=== PATIENT | female | born 1955 | race Caucasian/White ===

== ENCOUNTER 2018-11-01 06:50 | Outpatient (CLI) | payer OTHER, SELFPAY ==
[2018-11-01 08:15] LABS: Ferritin 146 ng/mL (8-388); TSH (W/Ref FT4) 2.09 uIU/mL (0.358-3.74)
== END 2018-11-01 07:10 ==
PROVIDERS: PCP Family Medicine; Visit Provider Family Medicine
DX: D64.9 Anemia, unspecified (principal); E03.9 Hypothyroidism, unspecified; E83.119 Hemochromatosis, unspecified
CPT/HCPCS: 36415; 82728; 84443

== ENCOUNTER 2018-11-09 01:28 | Outpatient (RCR) | payer OTHER, SELFPAY | END 2018-11-18 23:59 | disposition home or self-care (01) | LOC: INF 01:28 | PROVIDERS: PCP Family Medicine; Visit Provider Family Medicine | DX: E83.119 Hemochromatosis, unspecified (principal) | CPT/HCPCS: 99195 ==

== ENCOUNTER 2018-12-07 01:02 | Outpatient (RCR) | payer OTHER, SELFPAY | END 2018-12-18 23:59 | disposition home or self-care (01) | LOC: INF 01:02 | PROVIDERS: PCP Family Medicine; Visit Provider Family Medicine | DX: R69 Illness, unspecified (principal) ==

== ENCOUNTER 2019-11-04 10:52 | Outpatient (CLI) | payer OTHER, SELFPAY ==
[2019-11-04 13:05] LABS: Ferritin 110 ng/mL (8-252); TSH (W/Ref FT4) 2.47 uIU/mL (0.36-3.74)
[2019-11-04 13:30] LABS: HCT 50.5 % (36.0-46.0); HGB 16.7 g/dL (12.0-15.5); Mean Corp. HGB Concentration 33.1 g/dL (32.0-36.0); Mean Corpuscular Hemoglobin 31.2 pg (27.0-33.0); Mean Corpuscular Volume 94.4 fL (80-95); Mean Platelet Volume 9.8 fL (8.0-11.0); Platelet Count 301 x1000/uL (130-400); RBC 5.35 m/cumm (4.00-5.20); White Blood Cell Count 8.88 k/cumm (4.4-10.8)
== END 2019-11-04 11:12 ==
PROVIDERS: PCP Family Medicine; Visit Provider Family Medicine
DX: Z00.00 Encounter for general adult medical examination without abnormal findings (principal); Z13.29 Encounter for screening for other suspected endocrine disorder; Z13.0 Encounter for screening for diseases of the blood and blood-forming organs and certain disorders involving the immune mechanism
CPT/HCPCS: 36415; 85027; 82728; 84443

== ENCOUNTER 2019-11-08 02:26 | Outpatient (CLI) | payer OTHER, SELFPAY ==
--- NOTE | 2019-11-08 | DI.RAD_ITS ---
EXAM: XR KNEE LT 2V AP,LAT CLINICAL HISTORY: LT KNEE PAIN TECHNIQUE: COMPARISON: No exams were available for comparison FINDINGS: Two views were obtained. No bony or soft tissue abnormality seen. IMPRESSION:
--- NOTE | 2019-11-08 10:05 | DI.RAD_ITS ---
EXAM: XR LUMBAR SPINE AP, LAT CLINICAL HISTORY: BACK PAIN TECHNIQUE: COMPARISON: No exams were available for comparison FINDINGS: Three views were obtained. There is narrowing of the cartilaginous joint spaces at L4-5 and L5-S1. There are prominent hypertrophic facet changes at L4-5 and L5-S1 with mild pseudo spondylolisthesis o f L4 on L5. Minimal endplate hypertrophic changes noted at multiple levels. No compression fracture seen. 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
--- NOTE | 2019-11-08 10:05 | DI.RAD_ITS ---
EXAM: XR HAND RT LIMITED CLINICAL HISTORY: RT HAND PAIN TECHNIQUE: COMPARISON: LEFT HAND COMPLETE from 09/03/2010 FINDINGS: Three views were obtained. There is minimal narrowing of the cartilaginous joint spaces of IP joints consistent with degenerative change. Little if any hypertrophic changes noted. No other significan t findings. IMPRESSION: Minimal degenerative changes.
== END 2019-11-08 02:46 ==
PROVIDERS: PCP Family Medicine; Visit Provider Pediatrics Pediatric Rheumatology
DX: M25.561 Pain in right knee (principal); M25.562 Pain in left knee; M79.641 Pain in right hand; M19.041 Primary osteoarthritis, right hand; M54.5 Low back pain; M47.817 Spondylosis without myelopathy or radiculopathy, lumbosacral region; M43.16 Spondylolisthesis, lumbar region
CPT/HCPCS: 72100; 73120; 73560

== ENCOUNTER 2022-03-04 13:41 | Outpatient (CLI) | payer BC, SELFPAY ==
[2022-03-04 14:15] LABS: Abs Immature Grans 0.03 10^3/uL (0.0-0.06); Absolute Eosinophil Count 0.63 10^3/uL (0.0-0.7); Absolute Lymphocyte Count 4.46 10^3/uL (1.2-3.4); Absolute Monocyte Count 0.66 10^3/uL (0.1-0.8); Eosinophils % 6.1; HCT 49.6 % (36.0-46.0); HGB 16.5 g/dL (11.2-15.7); Immature Grans % 0.3; MCHC 33.3 % (32.0-36.0); MCV 93 fL (80-95); Monocytes % 6.4; Neutrophils % 43.2; Platelet Count 331 10^3/uL (130-400); RBC 5.32 10^6/uL (3.93-5.22); RDW 12.5 % (11.7-14.6); RDW-SD 42.8 fL; WBC 10.38 10^3/uL (4.4-10.8)
[2022-03-04 15:03] LABS: Iron 129 ug/dL (50-170)
[2022-03-04 15:15] LABS: ALT 41 U/L (14-59); AST 20 U/L (15-37); Albumin 4.2 g/dL (3.4-5.0); Alkaline Phosphatase 65 U/L (46-116); Anion Gap 10.3 mmol/L (3-11); BUN 17 mg/dL (7-18); Bilirubin, Total 0.5 mg/dL (0.2-1.0); CO2 27.7 mmol/L (21.0-32.0); CREATININE 0.8 mg/dL (0.55-1.02); Calcium 8.9 mg/dL (8.5-10.1); Chloride 100 mmol/L (98-107); Ferritin 188 ng/mL (8-252); Glucose 121 mg/dL (74-106); Potassium 4.1 mmol/L (3.5-5.1); Sodium 138 mmol/L (136-145); TSH (W/Ref FT4) 3.62 uIU/mL (0.36-3.74); Total Protein 7.8 g/dL (6.4-8.2)
[2022-03-06 10:50] LABS: Anaplasma phagocytophilum Negative (Negative); B. miyamotoi PCR Negative (Negative); Babesia divergens/MO-1 Negative (Negative); Babesia duncani Negative (Negative); Babesia microti Negative (Negative); Ehrlichia chaffeensis Negative (Negative); Ehrlichia ewingii/canis Negative (Negative); Ehrlichia muris eauclairensis Negative (Negative)
[2022-03-07 17:27] LABS: Lyme Ab w Rflx to Lyme Confirm Negative (Negative)
== END 2022-03-04 13:42 | disposition home or self-care (01) ==
LOC: LBO 13:46
PROVIDERS: Physician Assistant; PCP Family Medicine; Visit Provider Family Medicine
DX: Z00.00 Encounter for general adult medical examination without abnormal findings (principal); E83.119 Hemochromatosis, unspecified; E03.9 Hypothyroidism, unspecified; K76.0 Fatty (change of) liver, not elsewhere classified; R59.1 Generalized enlarged lymph nodes
CPT/HCPCS: 36415; 80053; 87798; 82728; 83540; 84443; 85025; 86618

== ENCOUNTER 2022-03-04 18:23 | Outpatient (CLI) | payer BC, SELFPAY | END 2022-03-04 18:24 | disposition home or self-care (01) | LOC: LBO 18:26 | PROVIDERS: PCP Family Medicine; Referring Provider Physician Assistant; Visit Provider Physician Assistant ==

== ENCOUNTER 2022-03-05 20:12 | Emergency (ER) | payer BC, SELFPAY ==
[2022-03-05 20:28] VITALS: BP 161/92; PULSE 90; RESP 16; TEMP 37.3; O2SAT 99
--- NOTE | 2022-03-05 20:36 | ED.GENADUL_ITS ---
Discharge Plan Disposition Patient Disposition: HOME Condition: Good Discharge Details Clinical Impression: Herpes zoster of neck Primary Care Provider: Teresa Celis ED Provider: Regna Frank Home Meds and New Rx's Prescriptions: New valacyclovir 1 gram tablet 1,000 mg PO TID Qty: 21 0RF Continued Creon 3,000-9,500- 15,000 unit capsule,delayed release(DR/EC) 1 cap PO TID Qty: 270 5RF multivitamin [Daily Multiple] 1 EACH tablet 1 ea PO DAILY levothyroxine [Synthroid] 50 mcg tablet 50 mcg PO DAILY Qty: 30 12RF Discharge Instructions Instructions: Shingles (ED) Additional Instructions: At this time your symptoms appear clinically consistent with shingles. Please take the antiviral medication as directed. You can also take Benadryl or loratadine to help with any mild reactionary inflammation. As we discussed together, rashes can change rapidly, and so if you notice any spread anywhere else or any significant change in the rash please follow-up closely with your primary care provider for reassessment. If you notice any worsening of your symptoms, or any new symptoms such as vomiting, diarrhea, fever, chills, shortness of breath, chest pain, numbness, weakness, or fainting , please return immediately to the emergency department for reevaluation. Please follow up with your primary care provider as soon as possible for reassessment and reevaluation. As always, it was a pleasure participating in your medical care today. Referrals: Teresa Celis [place], [place] [Primary Care Provider] - Medical Decision Making This is a pleasant 66-year-old female with a past medical history of hypothyroidism, who presents today for evaluation of rash on the left neck. For the last 2 days the patient noticed some irritation on her left neck and some swollen and slightly inflamed glands in that area. She was seen by her PCP, who saw no clear overt signs of infection. She had appropriate laboratory work-up performed to evaluate for tickborne illness, and was discharged appropriately. Since then there has been a change in the patient's clinical presentation. She has developed a rash on her posterior left neck. She denies any burning, but d oes admit to mild achiness on the rash itself. She denies any significant itching currently. No new ear pain. No headache. No fever. She states that she is actually feeling slightly better than she did yesterday and the day before. No other complaints at this time. No history of shingles in the past. No new medications or soaps. Physical exam demonstrates a mildly erythematous, scattered, minimally raised lesions over the left posterior neck. Does not appear to cross midline on the posterior neck and scalp. It appears to be isolated to the C2/C3 dermatome. There appears to be a few early vesicles that are present. Internal ear demonstrates no evidence of redness infection or other abnormality. No meningeal signs. No current clinical evidence of staph scalded skin syndrome, erythema multiforme, erythema migrans, toxic epidermal necrolysis, Brandt- Santos syndrome, Kawasaki-like rash, meningococcemia, pemphigus vulgaris, or necrotizing fasciitis. Symptoms appear consistent with shingles at this time. Seems to be localized completely to the C2/C3 dermatome and does not cross midline. We will treat with valacyclovir. There does not appear to be any superinfection from a bacterial component on top of this. Recommend Benadryl or loratadine as needed for any reactionary component. Discussed red flags which return. I have extensively reviewed the treatment plan and discharge instructions with the patient. I have addressed all patient concerns at this time. The patient was made aware of what symptoms to monitor for that would warrant a return to the emergency department. Discussed the plan with the patient, they demonstrate verbal understanding and agreement with our assessment and plan at this time. The documentation in this chart was dictated using [employer] dictation software. Please excuse any dictation errors. HPI General Date/Time Provider Initiated Documentation: 03/05/22 20:18 . HPI Narrative: This is a pleasant 66-year-old female with a past medical history of hypothyroidism, who presents today for evaluation of rash on the left neck. For the last 2 days the patient noticed some irritation on her left neck and some swollen and slightly inflamed glands in that area. She was seen by her PCP, who saw no clear overt signs of infection. She had appropriate laboratory work-up performed to evaluate for tickborne illness, and was discharged appropriately. Since then there has been a change in the patient's clinical presentation. She has developed a rash on her posterior left neck. She denies any burning, but does admit to mild achiness on the rash itself. She denies any significant itching currently. No new ear pain. No headache. No fever. She states that she is actually feeling slightly better than she did yesterday and the day before. No other complaints at this time. No history of shingles in the past. No new medications or soaps. Related Data Home Medications Medication Instructions Recorded Confirmed multivitamin (Daily Multiple 1 ea PO DAILY 09/15/15 03/05/22 tablet) lipase 3,000-protease 1 cap PO TID #270 caps 11/09/20 03/05/22 9,500-amylase 15,000 unit capsule, delayed rel (Creon) levothyroxine 50 mcg tablet 50 mcg PO DAILY #30 tab-caps 11/25/21 03/05/22 (Synthroid) valacyclovir 1 gram tablet 1,000 mg PO TID #21 tabs 03/05/22 Previous Rx's Medication Instructions Recorded lipase 3,000-protease 1 cap PO TID #270 caps 11/09/20 9,500-amylase 15,000 unit capsule, delayed rel (Creon) levothyroxine 50 mcg tablet 50 mcg PO DAILY #30 tab-caps 11/25/21 (Synthroid) valacyclovir 1 gram tablet 1,000 mg PO TID #21 tabs 03/05/22 Allergies Allergy/AdvReac Type Severity Reaction Status Date / Time minocycline AdvReac Intermediate JOINT PAIN Verified 03/05/22 20:36 AND SWELLING Review of Systems All systems reviewed & are unremarkable except as noted in HPI and below PFSH All Active Problems Herpes zoster of neck (Acute) Vitamin D deficiency (Acute 02/05/09) Annual physical exam (Acute) Non-alcoholic fatty liver disease (Acute 02/08/09) Joint pain (Acute 11/08/10) multiple arthralgias Hypothyroidism (Acute 11/08/10) 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 Brother No problems noted. Son No problems noted. Son No problems noted. Daughter No problems noted. Social History Smoking/Tobacco Use Status: Former Tobacco Use Quit status: has quit before Second Hand Exposure: Yes Smoking risk assessment performed?: Yes Alcohol Intake: former Drug use: Current Sobriety Substance use type: does not use Caregiver/Support person: No Household members: spouse Housing: house Communication Needs: Corrective Lenses Do you need help understanding health information?: Rarely current occupation: [employer] Pets and animals: Yes Pets and animals: cat(s) and dog(s) Sexually active: No Do you think of yourself as: straight/heterosexual Current gender identity: female What is your relationship status?: How often do you talk on the phone with friends or family?: three or more times per week How often do you get together with friends or relatives?: three or more times per week How often do you attend restorationist or orthodoxy services?: decline to answer Do you belong to any clubs or organized social groups?: no Panel score (0-1 are the most socially isolated patients): 2 What type of physical activity do you participate in: walking Duration: 60-90 minutes/day Frequency: daily Denice/Roman Catholic: No preference Special denice needs: No Seatbelt use: always Drive intox or ride w/intox national dedicated truck driver: No Do you feel safe at home: Yes Do you feel safe in your relationship?: Yes Exam Narrative Exam Narrative: 1.Const: Well-nourished, Well-developed, appearing stated age 2.Eyes: PERRL, no conjunctival injection, and symmetrical lids. 3.ENT: Atraumatic external nose and ears. Moist MM. Neck: Symmetric, trachea midline, No thyromegaly. 4.CVS: +S1/S2, No murmurs or gallops. Peripheral pulses 2+ and equal in all extremities. Brisk capillary refill in all extremities. 5.RESP: Unlabored respiratory effort. Clear to auscultation bilaterally. No wheezes rales or rhonchi 6.GI: Soft, Nontender/Nondistended, No hepatosplenomegaly. No guarding or rebound. 7.MSK: Normocephalic/Atraumatic, Extremities w/o deformity or ttp No cyanosis or clubbing, Normal movement of all extremities 8.Skin: Patient demonstrates evidence of a mildly erythematous, scattered, minimally raised lesions over the left posterior neck. Does not appear to cross midline on the posterior neck and scalp. It appears to be isolated to the C2/C3 dermatome. There appears to be a few early vesicles that are present. Internal ear demonstrates no evidence of redness infection or other abnormality. No meningeal signs. Negative Nikolsky sign. No large vesicles or bulla. No palpable purpura. No oral lesions. No mucosal lesions. No evidence of severe cellulitis. No evidence of vaccine preventable rash. 9.Neuro: materials mgmt tech II-XII grossly intact. Sensation grossly intact, no focal neurologic deficits. 10.Psych: (AAO) x3. Appropriate mood and affect
[2022-03-05] MEDS: valACYclovir 500 MG TAB (20:46)
== END 2022-03-05 20:47 | disposition home or self-care (01) ==
PROVIDERS: Emergency Provider Student in an Organized Health Care Education/Training Program; PCP Family Medicine
DX: B02.9 Zoster without complications (principal)
CPT/HCPCS: 99283

== ENCOUNTER 2023-02-15 02:48 | Outpatient (CLI) | payer BC, MEDICARE, SELFPAY ==
[2023-02-15 08:19] LABS: Abs Immature Grans 0.03 10^3/uL (0.0-0.06); Absolute Basophil Count 0.11 10^3/uL (0.0-0.2); Absolute Eosinophil Count 0.72 10^3/uL (0.0-0.7); Absolute Lymphocyte Count 4.35 10^3/uL (1.2-3.4); Absolute Monocyte Count 0.61 10^3/uL (0.1-0.8); Absolute Neutrophil Count 4.77 10^3/uL (1.2-6.7); Eosinophils % 6.8; HCT 49.8 % (36.0-46.0); HGB 16.8 g/dL (11.2-15.7); Immature Grans % 0.3; Lymphocytes % 41.1; MCH 30.9 pg (27.0-33.0); MCHC 33.7 % (32.0-36.0); MCV 92 fL (80-95); Monocytes % 5.8; Platelet Count 317 10^3/uL (130-400); RBC 5.44 10^6/uL (3.93-5.22); RDW 12.7 % (11.7-14.6); RDW-SD 42.4 fL; WBC 10.59 10^3/uL (4.4-10.8)
[2023-02-15 08:43] LABS: ALT 34 U/L (14-59); AST 16 U/L (15-37); Albumin 3.9 g/dL (3.4-5.0); Alkaline Phosphatase 55 U/L (46-116); Anion Gap 7.9 mmol/L (3-11); BUN 20 mg/dL (7-18); Bilirubin, Total 0.7 mg/dL (0.2-1.0); CO2 27.1 mmol/L (21.0-32.0); CREATININE 0.9 mg/dL (0.55-1.02); Calcium 9.2 mg/dL (8.5-10.1); Calculated LDL 178 mg/dL (<100); Chloride 104 mmol/L (98-107); Cholesterol 248 mg/dL (<200); Estimated GFR 70.51 (mL/min/1.73m2); Glucose 122 mg/dL (74-106); HDL Cholesterol 56 mg/dL (40-60); Potassium 4.7 mmol/L (3.5-5.1); Sodium 139 mmol/L (136-145); TSH (W/Ref FT4) 2.02 uIU/mL (0.36-3.74); Total Protein 7.7 g/dL (6.4-8.2); Triglyceride 74 mg/dL (<150)
[2023-02-15 12:53] LABS: Lab Add On Test DONE
[2023-02-15 13:11] LABS: Iron 153 ug/dL (50-170)
[2023-02-15 13:44] LABS: Ferritin 72 ng/mL (8-252)
== END 2023-02-15 02:49 | disposition home or self-care (01) ==
LOC: LBO 02:51
PROVIDERS: PCP Family Medicine; Visit Provider Family Medicine
DX: E03.9 Hypothyroidism, unspecified (principal); Z00.00 Encounter for general adult medical examination without abnormal findings; E83.119 Hemochromatosis, unspecified
CPT/HCPCS: 36415; 80053; 80061; 82728; 83540; 84443; 85025

== ENCOUNTER 2025-01-10 01:50 | Outpatient (CLI) | payer MEDICARE, SELFPAY ==
[2025-01-10 12:37] LABS: HGB 16.5 g/dL (11.2-15.7); MCH 31.1 pg (27.0-33.0); MCV 94 fL (80-95); MPV 10.4 fL (8.0-11.0); Platelet Count 279 10^3/uL (130-400); RDW 12.5 % (11.7-14.6); RDW-SD 43.2 fL; WBC 8.08 10^3/uL (4.4-10.8)
[2025-01-10 13:00] LABS: ALT 27 U/L (14-59); AST 22 U/L (15-37); Albumin 3.8 g/dL (3.4-5.0); Alkaline Phosphatase 63 U/L (46-116); Anion Gap 9.9 mmol/L (3-11); BUN 22 mg/dL (7-18); Bilirubin, Total 0.6 mg/dL (0.2-1.0); CO2 24.1 mmol/L (21.0-32.0); CREATININE 0.8 mg/dL (0.55-1.02); Calcium 9.1 mg/dL (8.5-10.1); Chloride 103 mmol/L (98-107); Estimated GFR 80.21 (mL/min/1.73m2); Glucose 103 mg/dL (74-106); Potassium 4.3 mmol/L (3.5-5.1); Sodium 137 mmol/L (136-145); Total Protein 7.4 g/dL (6.4-8.2)
== END 2025-01-10 01:51 | disposition home or self-care (01) ==
LOC: LOS 01:50
PROVIDERS: PCP Family Medicine; Visit Provider Family Medicine
DX: E03.9 Hypothyroidism, unspecified (principal); K86.89 Other specified diseases of pancreas
CPT/HCPCS: 36415; 80053; 85027; 84443